=== PATIENT | male | born 1995 ===

== ENCOUNTER 2020-08-22 01:42 | Emergency (ER) | payer SELFPAY ==
[~2020-08-22] VITALS: Ht 172.7 cm; Wt 77.0 kg
[2020-08-22 01:55] VITALS: BP 109/68
[2020-08-22] MEDS ORDERED: DIPHENHYDRAMINE 25MG CAPSULE PO ONE (02:15)
[2020-08-22] MEDS ORDERED: PREDNISONE 20MG TABLET PO ONE (02:15)
== END 2020-08-22 02:36 | disposition home or self-care (01) ==
LOC: ER 01:42 → EDBD 01:42 → ER 02:36
DX: T78.40XA Allergy, unspecified, initial encounter (principal); R21 Rash and other nonspecific skin eruption; X58.XXXA Exposure to other specified factors, initial encounter; Z88.3 Allergy status to other anti-infective agents; Z91.013 Allergy to seafood
CPT/HCPCS: 99283; J7512; Q0163